=== PATIENT | male | born 1995 | race Caucasian/White ===

== ENCOUNTER 2017-07-22 03:21 | Emergency (ER) | payer SELFPAY ==
[2017-07-22] MEDS ORDERED: Sulfameth/Trimethoprim DS 800-160mg TAB ONE (03:56)
== END 2017-07-22 04:13 | disposition home or self-care (01) ==
LOC: ERS 03:21
DX: L73.9 Follicular disorder, unspecified (principal); F17.210 Nicotine dependence, cigarettes, uncomplicated
CPT/HCPCS: 99282